=== PATIENT | female | born 1970 | race Caucasian/White ===

== ENCOUNTER 2017-01-19 23:24 | Emergency (ER) | payer MEDICAID ==
[~2017-01-19] VITALS: Ht 172.7 cm; Wt 139.0 kg
[~2017-01-19 23:24] MED LIST: CEPHALEXIN500 MG OR; MEDDOSEPAK OR; MOTRIN800 MG PO; PENICILLIN VK250 MG PO
[2017-01-20] MEDS ORDERED: BENADRYL 50MG C50 MG PO (00:52)
[2017-01-20] MEDS ORDERED: MEDDOSEPAK PO (00:52)
[2017-01-20] MEDS ORDERED: PEPCID20 MG PO (00:52)
[2017-01-20 00:53] VITALS: BP 103/53
== END 2017-01-20 01:12 | disposition home or self-care (01) | DRG 916 ==
LOC: ED 23:24
DX: T78.40XA Allergy, unspecified, initial encounter (principal); R21 Rash and other nonspecific skin eruption

== ENCOUNTER 2018-04-13 11:21 | Emergency (ER) | payer MEDICAID ==
[~2018-04-13] VITALS: Ht 172.7 cm; Wt 138.6 kg
[~2018-04-13 11:21] MED LIST changes: +BENADRYL 50MG C50 MG PO; +MEDDOSEPAK PO; +PEPCID20 MG PO
[2018-04-13 12:59] LABS: ALBUMIN 3.8 g/dL (3.2-5.0); ALKALINE PHOSPHATASE 97 u/l (38-126); ANION GAP 14 (6-22 (CALC)); BILIRUBIN, TOTAL 0.5 mg/dL (0.0-1.4); BUN 8 mg/dL (7-17); BUN/CREATININE RATIO 13 (12-20 (CALC)); CARBON DIOXIDE 25 mmol/l (22-30); CHLORIDE 103 mmol/l (95-108); CREATININE 0.6 mg/dL (0.5-1.0); GFR > 60 ML/MIN (>=60 (CALC)); GFR FOR AFR.AMER. > 60 ML/MIN (>=60 (CALC)); POTASSIUM 3.9 mmol/l (3.5-5.1); SGOT/AST 25 u/l (14-36); SODIUM 138 mmol/l (137-146); TOTAL PROTEIN 7.4 g/dL (6.3-8.2)
[2018-04-13] MEDS ORDERED: K-TAB20 MEQ PO (13:14)
[2018-04-13] MEDS ORDERED: TRAMADOL HYDROC50 MG PO (13:14)
[2018-04-13] MEDS ORDERED: LASIX 40 MG TAB40 MG PO (13:14)
[2018-04-13 13:20] VITALS: BP 128/54
== END 2018-04-13 13:20 | disposition home or self-care (01) ==
LOC: ED 11:21
DX: R60.0 Localized edema (principal); M79.605 Pain in left leg; M79.604 Pain in right leg